=== PATIENT | female | born 1970 | race Asian ===

== ENCOUNTER 2017-07-26 09:37 | Emergency (ER) | payer OTHER ==
[~2017-07-26] VITALS: Ht 157.5 cm; Wt 55.0 kg
[2017-07-26 09:43] VITALS: Ht 157.5 cm; Wt 55.0 kg
[2017-07-26] MEDS ORDERED: KETOROLAC 60 MG INJ IM STA (11:02)
--- NOTE | 2017-07-26 11:45 | ERD ---
ER Documentation Chief Complaint Date/Time DATE: 07/26/17 TIME: 11:42 Chief Complaint LOWER BACK PAIN X 2 WEEKS , WORSE AFTER LIFTING PATIENT LAST NIGHT HPI This is a 47-year-old female presents to the ER with lower back pain. 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 Patient is now experiencing bilateral leg numbness, the left leg is more numb than the right leg. She denies any urinary bowel incontinence. She denies any saddle like anesthesia. She denies any fevers or chills. She denies any IV drug use. Patient is walking with a cane secondary to pain and she took ibuprofen for her pain however did not work. ROS 12 point review of systems was done, all negative except per HPI. Medications Home Meds Active Scripts Orphenadrine Citrate (Norflex) 100 Mg Tablet.sa, 100 MG PO BID for 7 Days, TAB.SA Prov:VIANEY MCGEE 07/26/17 Ibuprofen* (Motrin*) 600 Mg Tab, 600 MG PO Q6, #30 TAB Prov:VIANEY MCGEE 07/26/17 Methylprednisolone* (Medrol* DOSE PACK) 4 Mg/Dose-Pack Tab.ds.pk, 4 MG PO . DIRECTED for 6 Days, PACKET Prov:VIANEY MCGEE 07/26/17 PMhx/Soc Medical and Surgical Hx: pt denies Medical Hx, pt denies Surgical Hx Hx Alcohol Use: No Hx Substance Use: No Hx Tobacco Use: No Smoking Status: Never smoker Physical Exam Vitals Vital Signs Date Time Temp Pulse Resp B/P Pulse Ox O2 Delivery O2 Flow Rate FiO2 07/26/17 09:43 98.1 81 18 139/74 98 Physical Exam GENERAL: The patient is well developed and appropriate for usual state of health , in no apparent distress. CHEST: Clear to auscultation bilaterally. There are no rales, wheezes or rhonchi. HEART: Regular rate and rhythm. No murmurs, clicks, rubs or gallops. ABDOMEN: Soft, nontender and nondistended. No pulsatile abdominal mass. BACK: TTP along L3- L5 Tense paraspinal muscles. postive right straight leg raise test. No step- offs. EXTREMITIES: Equal pulses bilaterally. There is no peripheral clubbing, cyanosis or edema. No focal swelling or erythema. Full range of motion. Grossly neurovascularly intact. NEURO: Alert and oriented. Cranial nerves II through XII are intact. Motor strength in all 4 extremities with 5/5 strength. Sensation grossly intact. Normal speech and gait. Results 24 hrs Current Medications Medications (Trade) Dose Ordered Sig/Lavelle Route PRN Reason Start Time Stop Time Status Last Admin Dose Admin Ketorolac Tromethamine (Toradol) 60 mg ONCE STAT IM 07/26/17 11:02 07/26/17 11:03 DC 07/26/17 11:18 [place] [address] Radiology Main Line: [phone] DIAGNOSTIC IMAGING REPORT Patient: ANDRADE HUGHES : 1970 Age: 47 Sex: F MR #: [id number] DOS: 07/26/17 0000 Ordering MD: VIANEY MCGEE PA-C [facility] Room/Bed: PROCEDURE: CT Lumbar Spine without intravenous contrast CLINICAL INDICATION: Low back pain for 2 weeks. COMPARISON: None available. TECHNIQUE: Axial noncontrast CT images of the lumbar spine with coronal and sagittal reformats. DOSE ESTIMATE: CTDI vol = 8 mGy. DLP = 263 mGy-cm. One or more of the following dose reduction techniques were used: automated exposure control, adjustment of the mA and/or kV according to patient size, or use of iterative reconstruction. FINDINGS: Segmentation: For this report the last well-formed disc is labeled L5-S1. The left L5 transverse process articulates with the sacrum, transitional lumbosacral anatomy. Alignment: Normal. Vertebrae: No fracture, vertebral body height loss, or destructive bone lesion. Discs: No disc height loss. Degenerative change: T12-L1: No disc herniation. No spinal canal or foraminal narrowing. L1-L2: No disc herniation. No spinal canal or foraminal narrowing. L2-L3: No disc herniation. No spinal canal or foraminal narrowing. L3-L4: No disc herniation. No spinal canal or foraminal narrowing. L4-L5: 2 mm disk bulge without significant central canal or foraminal narrowing. L5-S1: No disc herniation. No spinal canal or foraminal narrowing. Para-vertebral soft tissues: Normal. Visualized abdomen and pelvis: The endometrium is distended with fluid. Cholelithiasis. Additional comment: Moderate degenerative changes of the left sacroiliac joint. IMPRESSION: The left L5 transverse process articulates lumbosacral anatomy. RPTAT: PP Physician Zarina Date Time Electronically viewed and signed by Lexus Wahl Physician on 07/26/2017 11: 59 LG/ CC: VIANEY MCGEE Procedures/MDM Differential Diagnosis includes but is not limited to back strain, vertebral fracture, epidural abscess, cauda equina, herniated disc, AAA rupture, kidney stones, UTI, pAt this time is likely muscular in nature, patient is neurovascularly intact is able to ambulate in the ER. Patient's spine symptoms have stabilized while they have been evaluated in the department and are appropriate for outpatient work up.No evidence of cauda equina, cord compression , infiltrative, or infectious etiology. Patient will be sent home with ibuprofen, Norflex, Medrol Dosepak. Patient is to follow-up with her primary care doctor within 1-2 days return to ER sooner if symptoms worsen. My medical decision making sure with the patient she understands and agrees with plan Departure Diagnosis: Primary Impression: Back pain Condition: Stable VIANEY MCGEE Jul 26, 2017 11:45
--- NOTE | 2017-07-26 11:59 | RADRPT ---
PROCEDURE: CT Lumbar Spine without intravenous contrast CLINICAL INDICATION: Low back pain for 2 weeks. COMPARISON: None available. TECHNIQUE: Axial noncontrast CT images of the lumbar spine with coronal and sagittal reformats. DOSE ESTIMATE: CTDI vol = 8 mGy. DLP = 263 mGy-cm. One or more of the following dose reduction paola hniques were used: automated exposure control, adjustment of the mA and/or kV according to patient s ize, or use of iterative reconstruction. FINDINGS: Segmentation: For this report the last well-formed disc is labeled L5-S1. The left L5 transverse pro cess articulates with the sacrum, transitional lumbosacral anatomy. Alignment: Normal. Vertebrae: No fracture, vertebral body height loss, or destructive bone lesion. Discs: No disc height loss. Degenerative change: T12-L1: No disc herniation. No spinal canal or foraminal narrowing. L1-L2: No disc herniation. No spinal canal or foraminal narrowing. L2-L3: No disc herniation. No spinal canal or foraminal narrowing. L3-L4: No disc herniation. No spinal canal or foraminal narrowing. L4-L5: 2 mm disk bulge without significant central canal or foraminal narrowing. L5-S1: No disc herniation. No spinal canal or foraminal narrowing. Para-vertebral soft tissues: Normal. Visualized abdomen and pelvis: The endometrium is distended with fluid. Cholelithiasis. Additional comment: Moderate degenerative changes of the left sacroiliac joint. IMPRESSION: The left L5 transverse process articulates lumbosacral anatomy. RPTAT: PP Physician Zarina Date Time Electronically viewed and signed by Physician Zarina on 07/26/2017 11:59 /
[2017-07-26] MEDS ORDERED: IBUP-1542 PO (12:26)
[2017-07-26] MEDS ORDERED: MED4DP PO (12:26)
[2017-07-26] MEDS ORDERED: ORPH100T PO (12:27)
== END 2017-07-26 12:41 | disposition home or self-care (01) ==
LOC: FTE 09:37
DX: M54.5 Low back pain (principal)
CPT/HCPCS: 72131; 96372; J1885; Z7502

== ENCOUNTER 2018-07-20 06:19 | Day surgery (SDC) | END 2018-07-20 11:26 | disposition home or self-care (01) ==

== ENCOUNTER 2018-10-21 16:03 | Emergency (ER) | END 2018-10-21 19:22 | disposition home or self-care (01) ==

== ENCOUNTER 2019-05-15 16:50 | Emergency (ER) | payer OTHER ==
[~2019-05-15] VITALS: Ht 162.6 cm; Wt 57.3 kg
[~2019-05-15 16:50] MED LIST: ASCO-163 PO; CYCL10TA7 PO; FER325 PO; IBUP800T48 PO
[2019-05-15 16:56] VITALS: BP 151/67; PULSE 77; RESP 18; Ht 162.6 cm; Wt 57.3 kg
[2019-05-15] MEDS ORDERED: IBUPROFEN 800 MG TAB PO ONE (18:00)
[2019-05-15] MEDS ORDERED: IBUP800T48 PO (18:29)
--- NOTE | 2019-05-15 18:31 | ERD ---
ER Documentation Chief Complaint Chief Complaint right ankle pain s/p fall today off ladder HPI 49-year-old female presents status post falling off a 12 foot ladder earlier today at 2:30 PM. She reports she was up on the ladder changing something and the ladder was on sturdy and slipped causing her to fall and land on the right ankle and right hand. She denies hitting her head or any loss of consciousness. She denies any previous history to the right foot and right hand. She reports that the ankle pain as 10 out of 10 in severity and sharp in character that is localized to the medial and lateral aspects of her ankle. Patient has taken a dose of Tylenol with mild relief of her pain. Physical exam was limited due to the extreme pain of the patient ROS All systems reviewed and are negative except as per history of present illness. Medications Home Meds Active Scripts Ibuprofen* (Motrin*) 800 Mg Tab, 800 MG PO Q6H PRN for PAIN AND OR ELEVATED TEMP, #30 TAB Prov:TERRY PRIETO PA-C 05/15/19 Ibuprofen* (Motrin*) 800 Mg Tab, 800 MG PO Q6, #30 TAB Prov:SARAH NUNEZ PA-C 10/21/18 Cyclobenzaprine Hcl* (Cyclobenzaprine Hcl*) 10 Mg Tablet, 10 MG PO QHS, #15 TAB Prov:SARAH NUNEZ PA-C 10/21/18 Reported Medications Ascorbic Acid (Vitamin C With Candi Hips) 1,000 Mg Tablet, 1000 MG PO BID, TAB 07/20/18 Ferrous Sulfate* (Ferrous Sulfate*) 325 Mg Tabec, 325 MG PO BID, TAB 07/20/18 Allergies Allergies: Coded Allergies: No Known Allergy (Unverified , 07/20/18) PMhx/Soc History of Surgery: Yes (d&c, r. breast sx) Anesthesia Reaction: No Hx Neurological Disorder: No Hx Respiratory Disorders: No Hx Cardiac Disorders: No Hx Psychiatric Problems: No Hx Miscellaneous Medical Probl: No Hx Alcohol Use: No Hx Substance Use: No Hx Tobacco Use: No Smoking Status: Never smoker FmHx Family History: No diabetes Physical Exam Vitals Vital Signs Date Temp Pulse Resp B/P (MAP) Pulse Ox O2 O2 Flow FiO2 Time Delivery Rate 05/15/19 98.0 77 18 151/67 100 16:56 (95) Physical Exam Const: No acute distress Head: Atraumatic Eyes: Normal Conjunctiva ENT: Normal External Ears, Nose and Mouth. Neck: Full range of motion. No meningismus. Resp: Clear to auscultation bilaterally Cardio: Regular rate and rhythm, no murmurs Abd: Soft, non tender, non distended. Normal bowel sounds Skin: No petechiae or rashes Back: No midline or flank tenderness Ext: Right Ankle: Extreme edema right ankle. Tenderness to medial and lateral aspect of right ankle. Right Hand: Tenderness to the 4th digit at the base of the finger Neur: Awake and alert Psych: Normal Mood and Affect Results 24 hrs Current Medications Medications Dose Sig/Lavelle Start Time Status Last (Trade) Ordered Route PRN Stop Time Admin Dose Reason Admin Ibuprofen 800 mg ONCE ONCE 05/15/19 DC 05/15/19 (Motrin) PO 18:00 17:47 05/15/19 18:01 Procedures/MDM ED COURSE: The patient was stable throughout ED course. I kept the patient informed of laboratory and diagnostic imaging results throughout the ED course. DIAGNOSTIC IMAGING: Read by radiologist. PROCEDURE: XR Right Hand. CLINICAL INDICATION: Right hand pain TECHNIQUE: 3 views of the right hand were obtained. COMPARISON: No prior studies are available for comparison. FINDINGS: There is no acute fracture. Alignment is normal. Joint spaces are preserved. Soft tissues are grossly unremarkable. IMPRESSION: 1. No radiographic evidence of acute osseous abnormality. RPTAT: UU .Christian Sorto MD, MD Date Time Electronically viewed and signed by .Christian Sorto MD, on 05/15/2019 18:19 PROCEDURE: XR Ankle. CLINICAL INDICATION: Right ankle pain TECHNIQUE: 3 views of the right ankle were performed. COMPARISON: None. FINDINGS: There is no acute fracture. Alignment is normal. Joint spaces are preserved. There is a very pronounced lateral and anterior soft tissue swelling at the ankle. IMPRESSION: 1. No radiographic evidence of acute osseous abnormality. 2. Moderate to severe anterior and lateral soft tissue swelling at the ankle. MRI should be considered to assess for ligament and / or tendon tear given the degree of focal soft tissue swelling. RPTAT: UU .Christian Sorto MD, MD Date Time Electronically viewed and signed by .Christian Sorto MD, MD on 05/15/2019 18:13 MEDICATIONS GIVEN: MOTRIN Patient tolerated medication well with no adverse reactions. Patient reported improvement in pain. MEDICAL DECISION MAKING: Patient is a 49-year-old female status post falling off a 12 foot ladder at 12:30 PM today. Patient has extreme tenderness to the right ankle and right hand. X-ray imaging was done showing no acute abnormalities in the right hand and no acute bone abnormalities in the right ankle. Radiologist recommends following up with the MRI of the right ankle on outpatient basis to rule out any ligament tears. At this time I have no concern for any acute fractures, any osteomyelitis, any open fractures, or any septic joints. Vital signs were reviewed. Patient is afebrile. Patient was not hypoxic. Patient was hemodynamically stable. PRESCRIPTION: Motrin DISCHARGE: At this time, patient is stable for discharge and outpatient management. I have instructed the patient to follow-up with his/her primary care physician in 1-2 days. I have discussed with the patient the possibility of needing to see a specialist for further workup and imaging studies if symptoms persist. I have instructed the patient to promptly return to the ER for any new or worsening symptoms including increased pain, fever, nausea, vomiting, weakness or LOC. The patient and/or family expressed understanding of and agreement with this plan. All questions were answered. Home care instructions were provided. Disclaimer: Inadvertent spelling and grammatical errors are likely due to EHR/dictation software use and do not reflect on the overall quality of patient care. Also, please note that the electronic time recorded on this note does not necessarily reflect the actual time of the patient encounter. Departure Diagnosis: Primary Impression: Ankle pain Chronicity: acute Laterality: bilateral Qualified Codes: M25.571 - Pain in right ankle and joints of right foot; M25.572 - Pain in left ankle and joints of left foot Additional Impression: Hand pain Laterality: right Qualified Codes: M79.641 - Pain in right hand Condition: Fair Patient Instructions: Sprain, Ankle, With X-Ray Referrals: [facility] YOU HAVE RECEIVED A MEDICAL SCREENING EXAM AND THE RESULTS INDICATE THAT YOU DO NOT HAVE A CONDITION THAT REQUIRES URGENT TREATMENT IN THE EMERGENCY DEPARTMENT. FURTHER EVALUATION AND TREATMENT OF YOUR CONDITION CAN WAIT UNTIL YOU ARE SEEN IN YOUR DOCTORS OFFICE WITHIN THE NEXT 1-2 DAYS. IT IS YOUR RESPONSIBILITY TO MAKE AN APPOINTMENT FOR FOLOW-UP CARE. IF YOU HAVE A PRIMARY DOCTOR --you should call your primary doctor and schedule an appointment IF YOU DO NOT HAVE A PRIMARY DOCTOR YOU CAN CALL OUR PHYSICIAN REFERRAL HOTLINE AT IF YOU CAN NOT AFFORD TO SEE A PHYSICIAN YOU CAN CHOSE FROM THE FOLLOWING [facility] [address] [facility]. [facility] [address] [facility] [facility] [address] [facility] [address] [facility] [address] [facility]. [facility] [address] [facility]. [facility] YOU HAVE RECEIVED A MEDICAL SCREENING EXAM AND THE RESULTS INDICATE THAT YOU DO NOT HAVE A CONDITION THAT REQUIRES URGENT TREATMENT IN THE EMERGENCY DEPARTMENT. FURTHER EVALUATION AND TREATMENT OF YOUR CONDITION CAN WAIT UNTIL YOU ARE SEEN IN YOUR DOCTORS OFFICE WITHIN THE NEXT 1-2 DAYS. IT IS YOUR RESPONSIBILITY TO MAKE AN APPOINTMENT FOR FOLOW-UP CARE. IF YOU HAVE A PRIMARY DOCTOR --you should call your primary doctor and schedule and appointment IF YOU DO NOT HAVE A PRIMARY DOCTOR YOU CAN CALL OUR PHYSICIAN REFERRAL HOTLINE AT . IF YOU CAN NOT AFFORD TO SEE A PHYSICIAN YOU CAN CHOSE FROM THE FOLLOWING [facility] INSTITUTIONS: [facility] [address] [place] [address] [facility] [address] [place] [address] [facility] [address] [place] [address] [facility] Care 7 a.m.- 11 p.m. Every Day of the Week NO APPOINTMENT OR AUTHORIZATION NEEDED Additional Instructions: Follow-up with primary care and Ortho in the next 1 to 2 days Call your primary care doctor TOMORROW for an appointment during the next 1-2 days.See the doctor sooner or return here if your condition worsens before your appointment time. TERRY PRIETO PA-C May 15, 2019 18:31
== END 2019-05-15 19:08 | disposition home or self-care (01) ==
LOC: FTE 16:50
DX: M25.571 Pain in right ankle and joints of right foot (principal); M79.641 Pain in right hand; M25.572 Pain in left ankle and joints of left foot
CPT/HCPCS: 73130; 73610; Z7502; Z7610